=== PATIENT | male | born 1975 | race African-American/Black ===

== ENCOUNTER 2020-12-23 09:17 | Emergency (ER) | payer BC ==
[~2020-12-23] VITALS: Ht 177.8 cm; Wt 79.5 kg
[~2020-12-23 09:17] MED LIST: PRED20TA PO; TRIA15OI TP
[2020-12-23 09:27] VITALS: BP 173/86
[2020-12-23] MEDS ORDERED: GABA-585 PO (10:08)
--- NOTE | 2020-12-23 10:09 | ED.ADGEN ---
Past Medical History Past Medical History: No Pertinent History Past Surgical History: No Surgical History Smoking Status: Never Smoker Alcohol Use: Heavy Drug Use: None General Adult EDM: Chief Complaint: FOOT INJURY PAIN HPI: HPI: Patient is a 45-year-old previously healthy male who presents to the emergency room complaining of burning and numbness in bilateral feet that has been ongoing for several months. Patient states it is constant. It feels like [id number]. He had a work-up done in [place] where they checked her for diabetes and vitamin deficiencies and he was told that everything was good to go. He states he continues to have pain. He has not seen anybody since that time. He is hoping we will be able to fix this today. Review of Systems: Review of Systems: Complete ROS is negative unless otherwise documented in HPI Allergies: Allergies: Allergies Coded Allergies Type Severity Reaction Last Updated Verified No Known Drug Allergies 07/21/16 No Physical Exam: PE: General: Awake, alert, NAD. Well Nourished, well hydrated. Cooperative HEENT: Atraumatic, EOMI, PERRL, airway patent, moist oral mucosa Neck: Supple, trachea midline Respiratory: CTA bilaterally, normal effort, no wheezing/crackles CV: RRR, no murmur, cap refill <2 GI: Soft, nondistended, nontender, no masses MSK: No obvious deformities, 2+ bilateral DP pulses, full range of motion of bilateral feet and ankles Skin: Warm, dry, intact Neuro: A&O x3, speech NL, sensory and motor grossly intact, no focal deficits Psych: Normal affect, normal mood, not suicidal or homicidal Current Patient Data: Vital Signs: Vital Signs Date Time Temp Pulse Resp B/P (MAP) Pulse Ox O2 Delivery O2 Flow Rate FiO2 12/23/20 09:27 98.7 100 20 173/86 (115) 98 Room Air 98.7 EKG: EKG: [] Heart Score: C/O Chest Pain: N/A Risk Factors: Risk Factors: DM, Current or recent (<one month) smoker, HTN, HLP, family history of CAD, obesity. Risk Scores: Score 0 - 3: 2.5% MACE over next 6 weeks - Discharge Home Score 4 - 6: 20.3% MACE over next 6 weeks - Admit for Clinical Observation Score 7 - 10: 72.7% MACE over next 6 weeks - Early Invasive Strategies Radiology/Procedures: Radiology/Procedures: [] Course & Med Decision Making: Course & Med Decision Making Pertinent Labs and Imaging studies reviewed. (See chart for details) Patient is a 45-year-old male who presents to the emergency room complaining of neuropathy symptoms. He has had a work-up done for this including a check for diabetes and vitamin deficiency evaluation which was normal. Patient may warrant further evaluation, however at this time patient does not appear to have any kind of emergent limb or life threatening issue. I have discussed with the patient that he needs to see a marketing services coordinator who can do further testing such as nerve conduction studies. Patient did state "so I am going to leave here with the same problem I came in with." I discussed with the patient that his neuropathy is going to require further evaluation by a marketing services coordinator and a primary care physician.. I have discussed with him that I do not have the capacity to do that here in the emergency room. Patient's test results and vitals while in the ED were fully reviewed and discussed with the patient. Patient is stable and at this time does not need admission to the hospital. We have discussed strict return precautions and the importance of following up with their Primary Care Physician. Patient stated understanding and was given an opportunity to ask any questions. Patient is in agreement with plan. Jacqueline Disclaimer: Jacqueline Disclaimer: This electronic medical record was generated, in whole or in part, using a voice recognition dictation system. Departure Departure Impression: Primary Impression: Neuropathy Disposition: 01 DC HOME SELF CARE/HOMELESS Condition: STABLE Referrals: [facility] Patient Instructions: Pain, Neuropathic Scripts Gabapentin (GABAPENTIN ) 100 Mg Capsule 100 MG PO TID for NEUROGENIC PAIN for 30 Days, #90 CAP Prov: YOANA CHEUNG MD 12/23/20 YOANA CHEUNG MD Dec 23, 2020 10:09
== END 2020-12-23 10:10 | disposition home or self-care (01) ==
LOC: ER 09:17
DX: G62.9 Polyneuropathy, unspecified (principal)
CPT/HCPCS: 99283